=== PATIENT | female | born 1995 | race Caucasian/White ===

== ENCOUNTER 2022-08-08 12:15 | Emergency (ER) | payer BC ==
[~2022-08-08] VITALS: Ht 167.6 cm; Wt 75.3 kg
[2022-08-08] MEDS ORDERED: LEXAPRO5 MG (13:08)
[2022-08-08] MEDS ORDERED: METROGEL60 GM VAG (13:55)
== END 2022-08-08 14:00 | disposition home or self-care (01) ==
LOC: ER 12:15
DX: N76.0 Acute vaginitis (principal); B96.89 Other specified bacterial agents as the cause of diseases classified elsewhere; R10.2 Pelvic and perineal pain